=== PATIENT | female | born 2000 | race American Indian/Alaskan Native ===

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

== ENCOUNTER 2021-05-15 15:59 | Emergency (ER) | payer MEDICAID ==
[2021-05-15 16:45] VITALS: BP 137/79
--- NOTE | 2021-05-15 17:56 | Emergency Department Report ---
- General Chief Complaint: Sore Throat Stated Complaint: SORE THROAT/EARACHE Source: patient Mode of arrival: Ambulatory Limitations: No Limitations - History of Present Illness Initial Comments: 20-year-old female presents to the ED complaining earache, sore throat, cough and headache x2 weeks. Patient states that she has been taking [id number] NyQuil and DayQuil without any relief. States symptoms are worse in a.m. denies any recent illness. Denies any chest pain ,shortness of breath fever,or chills. No acute distress noted. No ill appearance noted. Patient is alert and oriented x3 Onset/Timin -: week(s) Worsens With: nothing Associated Symptoms: headache, sore throat, ear pain Treatments Prior to Arrival: none - Related Data Previous Rx's Medication Instructions Recorded Last Taken Type Fluconazole (Nf) [Diflucan TAB] 150 mg PO DAILY #5 tablet 01/05/19 Unknown Rx metroNIDAZOLE [Flagyl] 500 mg PO Q12HR #14 tab 01/05/19 Unknown Rx Amoxicillin/Potassium Clav 1 each PO BID 10 Days #20 tab 05/15/21 Unknown Rx [Augmentin 875-125 Tablet] Cetirizine HCl/Pseudoephedrine 1 each PO BID 15 Days #30 tab 05/15/21 Unknown Rx [Zyrtec-D Tablet] predniSONE [Deltasone] 20 mg PO BID 5 Days #10 tab 05/15/21 Unknown Rx Allergies Allergy/AdvReac Type Severity Reaction Status Date / Time No Known Allergies Allergy Unverified 01/05/19 09:01 ED Review of Systems ROS: Stated complaint: SORE THROAT/EARACHE Other details as noted in HPI Constitutional: denies: chills, fever Eyes: denies: eye pain, eye discharge, vision change ENT: throat pain. denies: ear pain Respiratory: denies: cough, shortness of breath, wheezing Cardiovascular: denies: chest pain, palpitations Endocrine: no symptoms reported Gastrointestinal: denies: abdominal pain, nausea, diarrhea Genitourinary: denies: urgency, dysuria, discharge Musculoskeletal: denies: back pain, joint swelling, arthralgia Skin: denies: rash, lesions Neurological: denies: headache, weakness, paresthesias Psychiatric: denies: anxiety, depression Hematological/Lymphatic: denies: easy bleeding, easy bruising ED Past Medical Hx - Surgical History Additional Surgical History: ADENIOD - Social History Smoking Status: Never Smoker - Medications Home Medications: Home Medications Medication Instructions Recorded Confirmed Last Taken Type Fluconazole (Nf) [Diflucan TAB] 150 mg PO DAILY #5 tablet 01/05/19 Unknown Rx metroNIDAZOLE [Flagyl] 500 mg PO Q12HR #14 tab 01/05/19 Unknown Rx Amoxicillin/Potassium Clav 1 each PO BID 10 Days #20 tab 05/15/21 Unknown Rx [Augmentin 875-125 Tablet] Cetirizine HCl/Pseudoephedrine 1 each PO BID 15 Days #30 tab 05/15/21 Unknown Rx [Zyrtec-D Tablet] predniSONE [Deltasone] 20 mg PO BID 5 Days #10 tab 05/15/21 Unknown Rx ED Physical Exam - General Limitations: No Limitations General appearance: alert, in no apparent distress - Head Head exam: Present: atraumatic, normocephalic - Eye Eye exam: Present: normal appearance - ENT ENT exam: Present: mucous membranes moist - Neck Neck exam: Present: normal inspection - Respiratory Respiratory exam: Present: normal lung sounds bilaterally. Absent: respiratory distress - Cardiovascular Cardiovascular Exam: Present: regular rate, normal rhythm. Absent: systolic murmur, diastolic murmur, rubs, gallop - GI/Abdominal GI/Abdominal exam: Present: soft, normal bowel sounds - Extremities Exam Extremities exam: Present: normal inspection - Back Exam Back exam: Present: normal inspection - Neurological Exam Neurological exam: Present: alert, oriented X3 - Psychiatric Psychiatric exam: Present: normal affect, normal mood - Skin Skin exam: Present: warm, dry, intact, normal color. Absent: rash ED Course Vital Signs 05/15/21 16:43 Temperature 98.9 F Pulse Rate 88 Respiratory 18 Rate Blood Pressure 137/79 [Right] O2 Sat by Pulse 100 Oximetry ED Medical Decision Making - Medical Decision Making 20-year-old female presents to the ED complaining earache, sore throat, cough and headache x2 weeks. Patient states that she has been taking [id number] NyQuil and DayQuil without any relief. States symptoms are worse in a.m. denies any recent illness. Denies any chest pain ,shortness of breath fever,or chills. No acute distress noted. No ill appearance noted. Patient is alert and oriented x3. Physical examination patient has tenderness noted to the front of cabinets upon the palpation. Postnasal drainage noted. Will Treat patient for acute frontal sinusitis. Rechecked the patient is resting quietly quietly and comfortable and feeling better. I discussed the results of diagnostic study, my clinical impression and the plan for further treatment with the patient. Patient agrees with plan and discharge at this present time. All question addressed. I have given the patient instruction regarding a diagnosis ,expectation ,follow- up and return precaution. I explained to the patient that emergent condition may arise and to return to the ED for new worsen and any new persisting condition. I have explained the importance of following up with the primary care physician or referral physician listed below has instructed. The patient verbalized understanding of discharge instruction. Critical care attestation.: If time is entered above; I have spent that time in minutes in the direct care of this critically ill patient, excluding procedure time. ED Disposition Clinical Impression: Acute frontal sinusitis Qualifiers: Recurrence: recurrent Qualified Code(s): J01.11 - Acute recurrent frontal sinusitis Disposition: 01 HOME / SELF CARE / HOMELESS Is pt being admited?: No Does the pt Need Aspirin: No Condition: Stable Instructions: Sinusitis, Adult, [id number] Additional Instructions: Take medication as prescribed Return to the ED for any worsening symptom Prescriptions: Amoxicillin/Potassium Clav [Augmentin 875-125 Tablet] 1 each PO BID 10 Days #20 tab predniSONE [Deltasone] 20 mg PO BID 5 Days #10 tab Cetirizine HCl/Pseudoephedrine [Zyrtec-D Tablet] 1 each PO BID 15 Days #30 tab Referrals: [facility] [Provider Group] - 3-5 Days Forms: Work/School Release Form(ED)
== END 2021-05-15 18:20 | disposition home or self-care (01) ==
LOC: ED 15:59
DX: J01.10 Acute frontal sinusitis, unspecified (principal)
CPT/HCPCS: 99282